=== PATIENT | female | born 1935 | race Caucasian/White ===

== ENCOUNTER 2019-11-19 10:29 | Emergency (ER) | payer MEDICARE ==
[~2019-11-19] VITALS: Ht 160 cm; Wt 68.5 kg
[~2019-11-19 10:29] MED LIST: AMLO5 PO; ASPI325 PO; FURO20 PO; GABA100 PO; HYDR-86 PO; LEVO750 PO; LEVSOD100 PO; LEVSOD125 PO; LISHYD2025 PO; METO50ER PO; POTCHL10ER PO; SACC250C PO; XARELTO15 MG PO
[2019-11-19 10:57] LABS: Source, Urine Clean Catch
[2019-11-19 11:00] LABS: Appearance, Urine Clear (Clear); Bilirubin, Urine Neg (Neg); Blood, Urine 1+ (Neg); Color, Urine Yellow (P-Yellow); Glucose Qualitative, Urine Neg (Neg); Ketones, Urine Neg (Neg); Leukocyte Esterase, Urine 1+ (Neg); Nitrite, Urine Neg (Neg); Protein, Urine 1+ (Neg); Urobilinogen, Urine NORM (Normal)
[2019-11-19 11:05] LABS: BASOPHILS ABSOLUTE AUTO 0.02 K/mm3 (0.00-0.23); BASOPHILS PERCENT AUTO 0 % (0-2); EOSINOPHILS PERCENT AUTO 0 % (0-6); Hematocrit 37.5 % (33.0-51.0); Hemoglobin 12.2 g/dL (11.5-16.0); IMMATURE GRAN ABSOLUTE AUTO 0.24 K/mm3 (0.00-0.10); IMMATURE GRAN PERCENT AUTO 1 % (0-1); LYMPHOCYTES PERCENT AUTO 2 % (21-46); MONOCYTES ABSOLUTE AUTO 11.22 K/mm3 (0.16-1.47); MONOCYTES PERCENT AUTO 44 % (4-13); Mean Corpuscular HGB 28.4 pg (26.0-34.0); Mean Corpuscular HGB Conc 32.5 g/dL (31.5-36.5); Mean Corpuscular Volume 87 fL (80-100); Mean Platelet Volume 10.8 fL (9.1-12.4); NEUTROPHILS ABSOLUTE AUTO 13.56 K/mm3 (1.96-9.15); NEUTROPHILS PERCENT AUTO 53 % (41-73); Platelet Count 442 K/mm3 (150-400); RDW Coefficient Variation 14.7 % (11.7-14.2); RDW Standard Deviation 47.1 fL (35.1-46.3); White Blood Cell Count 25.54 K/mm3 (4.00-11.30)
[2019-11-19 11:16] LABS: Bacteria Mod /hpf; Squamous Epithelial Cells Few /hpf (Few)
[2019-11-19 11:24] LABS: Alanine Aminotransfer (ALT/SGP 18 U/L (12-78); Albumin, Blood 3.5 g/dL (3.4-5.0); Albumin/Globulin Ratio 1.2 (0.8-1.8); Alk Phos 60 U/L (50-136); Anion Gap 8 mmol/L (6-16); Aspartate Aminotrans (AST/SGOT 18 U/L (12-37); Bilirubin, Total 0.8 mg/dL (0.1-1.0); Blood Urea Nitrogen 14 mg/dL (8-24); Bun/Creatinine Ratio 24.7 (12.0-20.0); CO2, Blood 27 mmol/L (21-32); Calcium, Blood 8.4 mg/dL (8.5-10.1); Chloride, Blood 102 mmol/L (98-108); Creatinine, Blood 0.57 mg/dL (0.40-1.00); Globulin, Blood 2.9 g/dL (2.2-4.0); Glomerular Filtration Rate >60 (60-); Glucose, Blood 155 mg/dL (70-99); Potassium, Blood 3.8 mmol/L (3.5-5.5); Sodium, Blood 137 mmol/L (136-145); Total Protein, Blood 6.4 g/dL (6.4-8.2)
[2019-11-19] MEDS ORDERED: DILT180 PO (11:31)
[2019-11-19] MEDS ORDERED: ROSU5 PO (11:32)
[2019-11-19] MEDS ORDERED: LOSARTAN POTAS100 MG PO (11:32)
[2019-11-19] MEDS ORDERED: Hydrochloroth12.5 MG PO (11:33)
[2019-11-19] MEDS ORDERED: DOXA1 PO (11:33)
[2019-11-19] MEDS ORDERED: Hydrocodone-Ap1 EA26 PO (11:33)
[2019-11-19] MEDS ORDERED: Potassium Chlo20 ME1 PO (11:34)
[2019-11-19] MEDS ORDERED: FUROSEMIDE20 MG PO (11:34)
[2019-11-19] MEDS ORDERED: SYNTHROID100 MCG PO (11:34)
[2019-11-19] MEDS ORDERED: Ventolin/Prove6.7 GM INH (11:35)
[2019-11-19] MEDS ORDERED: XARELTO20 M1 PO (11:36)
== END 2019-11-19 18:47 | disposition short-term general hospital (02) ==
LOC: ER 10:29
PROVIDERS: Emergency Medicine
DX: A41.9 Sepsis, unspecified organism (principal); K80.00 Calculus of gallbladder with acute cholecystitis without obstruction; I11.0 Hypertensive heart disease with heart failure; I50.9 Heart failure, unspecified; E03.9 Hypothyroidism, unspecified; Z91.09 Other allergy status, other than to drugs and biological substances; Z88.2 Allergy status to sulfonamides; Z79.899 Other long term (current) drug therapy
CPT/HCPCS: 36415; 71045; 74176; 76705; 80053; 81001; 83605; 83690; 85025; 87040; 87077; 87086; 87186; 96361; 96365; 96375; 96376; 99285-25; J2405; J2543; J3010; J7030

== ENCOUNTER → 2020-07-23 | Outpatient (CLI) | payer MEDICARE ==
[~2020-07-23] MED LIST changes: +DILT180 PO; +DOXA1 PO; +FUROSEMIDE20 MG PO; +Hydrochloroth12.5 MG PO; +Hydrocodone-Ap1 EA26 PO; +LOSARTAN POTAS100 MG PO; +Potassium Chlo20 ME1 PO; +ROSU5 PO; +SYNTHROID100 MCG PO; +Ventolin/Prove6.7 GM INH; +XARELTO20 M1 PO
== END | disposition home or self-care (01) ==
LOC: LAB SHORT 14:58 → PLD 14:58
DX: L81.4 Other melanin hyperpigmentation (principal)
CPT/HCPCS: 88305

== ENCOUNTER 2022-05-05 20:47 | Inpatient (IN) | payer MEDICARE ==
[~2022-05-05] VITALS: Ht 157.5 cm; Wt 58.6 kg
[~2022-05-05 20:47] MED LIST changes: +EUTHYROX125 MCG PO; -SYNTHROID100 MCG PO
[2022-05-05 21:06] LABS: Hematocrit 32.2 % (33.0-51.0); Hemoglobin 10.6 g/dL (11.5-16.0); Mean Corpuscular HGB 28.8 pg (26.0-34.0); Mean Corpuscular HGB Conc 32.9 g/dL (31.5-36.5); Mean Corpuscular Volume 88 fL (80-100); Mean Platelet Volume 10.9 fL (9.1-12.4); Platelet Count 474 K/mm3 (150-400); RDW Coefficient Variation 15.8 % (11.7-14.2); RDW Standard Deviation 49.6 fL (35.1-46.3); Red Blood Cell Count 3.68 M/mm3 (3.80-5.20); White Blood Cell Count 30.21 K/mm3 (4.00-11.30)
[2022-05-05 21:19] LABS: Albumin, Blood 3.1 g/dL (3.4-5.0); Bilirubin, Total 0.8 mg/dL (0.1-1.0); Bun/Creatinine Ratio 28.7 (12.0-20.0); Calcium, Blood 8.2 mg/dL (8.5-10.1); Creatinine, Blood 0.66 mg/dL (0.40-1.00); Potassium, Blood 3.5 mmol/L (3.5-5.5); Total Protein, Blood 6.1 g/dL (6.4-8.2)
[2022-05-05 21:30] LABS: BAND PERCENT MAN 12 % (0-8); BASOPHILS PERCENT MAN 0 % (0-2); EOSINOPHILS PERCENT MAN 0 % (0-6); LYMPHOCYTES PERCENT MAN 1 % (21-46); MONOCYTES ABSOLUTE MAN 6.64 K/mm3 (0.16-1.47); MONOCYTES PERCENT MAN 22 % (4-13); NEUTROPHILS ABSOLUTE MAN 23.26 K/mm3 (1.96-9.15); SEG NEUTROPHILS PERCENT MAN 65 % (41-73); TOTAL CELLS COUNTED 100
[2022-05-05 22:39] LABS: Thyroid Stimulating Hormone 0.8 uIU/mL (0.360-4.800)
[2022-05-06 00:18] LABS: Influenza A, PCR NEGATIVE (NEGATIVE); Influenza B, PCR NEGATIVE (NEGATIVE); Resp Syncytial Virus, PCR NEGATIVE (NEGATIVE)
[2022-05-06 00:58] LABS: SARS-Cov-2 (COVID-19) PCR, MMC POSITIVE (NEGATIVE)
--- NOTE | 2022-05-06 02:46 | NUR ---
ADMIT NOTE PT TO 313 FROM ED AT 0246. PT IS NOT ON O2. PT IS ON TELE, SINUS IN THE 70'S. PT IS COVID + AND ADMITTED FOR SEPSIS. PT STS NO DIFFICULTY BREATHING AND NO PAIN AT THIS TIME. PT VITALS WITHIN NORMAL LIMITS. PT HAS TWO INFLAMED RED SPOTS ON HER R LOWER [place]/ANKLE WHERE SHE WAS BITTEN BY A STRAY CAT A FEW DAYS AGO. REMDEZEVIR STARTED AND NS RUNNING. PT IS ALERT AND ORIENTED X 4 AND IS PLEASANT AND COOPERATIVE. PT USES FWW TO AMBULATE DUE TO ISSUES WITH HER BALANCE.
[2022-05-06] MEDS ORDERED: AMLODIPINE BESYL5 MG PO (03:48)
[2022-05-06] MEDS ORDERED: TELMISARTAN80 MG PO (03:49)
[2022-05-06] MEDS ORDERED: METOPROLOL SUCC25 MG PO (03:49)
[2022-05-06] MEDS ORDERED: GABAPENTIN600 MG PO (03:50)
[2022-05-06] MEDS ORDERED: CEPH500 PO (03:52)
[2022-05-06 04:45] LABS: Hematocrit 29.3 % (33.0-51.0); Hemoglobin 9.7 g/dL (11.5-16.0); Mean Corpuscular HGB Conc 33.1 g/dL (31.5-36.5); Mean Corpuscular Volume 88 fL (80-100); Mean Platelet Volume 10.9 fL (9.1-12.4); Platelet Count 429 K/mm3 (150-400); RDW Coefficient Variation 15.6 % (11.7-14.2); RDW Standard Deviation 48.9 fL (35.1-46.3); Red Blood Cell Count 3.34 M/mm3 (3.80-5.20); White Blood Cell Count 28.99 K/mm3 (4.00-11.30)
[2022-05-06 05:03] LABS: Bun/Creatinine Ratio 26.4 (12.0-20.0); Calcium, Blood 8.2 mg/dL (8.5-10.1); Creatinine, Blood 0.64 mg/dL (0.40-1.00); Potassium, Blood 3.3 mmol/L (3.5-5.5)
[2022-05-06 05:28] LABS: BASOPHILS PERCENT MAN 0 % (0-2); EOSINOPHILS PERCENT MAN 0 % (0-6); LYMPHOCYTES ABSOLUTE MAN 0.57 K/mm3 (0.84-5.20); LYMPHOCYTES PERCENT MAN 2 % (21-46); MONOCYTES ABSOLUTE MAN 6.95 K/mm3 (0.16-1.47); MONOCYTES PERCENT MAN 24 % (4-13); NEUTROPHILS ABSOLUTE MAN 21.45 K/mm3 (1.96-9.15); SEG NEUTROPHILS PERCENT MAN 74 % (41-73); TOTAL CELLS COUNTED 100
[2022-05-06] MEDS ORDERED: ELIQUIS5 M2 PO (08:39)
--- NOTE | 2022-05-06 18:11 | NUR ---
PT REPORTED THIS AM SHE DOES NOT TAKE XARELTO OR CRESTOR. SHE REPORTS SHE TAKES ELIQUIS 5 MG PO BID, METORPOLOL XL 12.[address] ALONSO NOTIFIED OF MEDICATION CHANGES AND RECONCILIATION COMPLETED. DR. ALONSO GAVE TO FOR ABOVE CHANGES TO BE COMPLETED.
--- NOTE | 2022-05-06 19:34 | NUR ---
SHIFT SUMMARY: PT A/O X 4 STANDBY ASSIST, VERY PLEASANT AND COOPERATIVE WITH CARES. PT ON TELE DID GET TACHICARDIC WHEN UP TO BSC UP TO 130'S BUT CAME DOWN ONCE RESTING IN BED. PT DID GET SOB WITH EXERTION WHICH DID RESOLVE AFTER A FEW MINUTES AT REST. PT HAD TWO FORMED BM'S TODAY. SHE IS EATING AND DRINKING WELL. PT WOUND TO RLE MONICA, NO DRAINAGE AT THIS TIME. LEG IS SWOLLEN. PT C/O PAIN TO LEG THIS EVENING ALONG WITH A LARRY. MEDICATED WITH NORCO PER JAN.
--- NOTE | 2022-05-07 05:20 | NUR ---
PT IS A/O, RLE SWOLLEN WITH CAT BITE, COVID POSITIVE, ON RA. PT IS STANDBY ASSIST TO BSC THIS SHIFT, USES FWW AT HOME AT BASELINE. 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 MEDICATED FOR LARRY AND BACK PAIN THIS SHIFT.
[2022-05-07 08:26] LABS: Hematocrit 32.3 % (33.0-51.0); Hemoglobin 10.3 g/dL (11.5-16.0); Mean Corpuscular HGB 28.6 pg (26.0-34.0); Mean Corpuscular HGB Conc 31.9 g/dL (31.5-36.5); Mean Corpuscular Volume 90 fL (80-100); Mean Platelet Volume 11.4 fL (9.1-12.4); Platelet Count 417 K/mm3 (150-400); RDW Coefficient Variation 15.8 % (11.7-14.2); RDW Standard Deviation 51.7 fL (35.1-46.3); White Blood Cell Count 19.97 K/mm3 (4.00-11.30)
--- NOTE | 2022-05-07 18:39 | NUR ---
AOX4, CAN MAKE NEEDS KNOWN. PT SBA ASST USES FWW AT HOME. COOPERATIVE WITH MEDICATION AND CARE. SWOLLEN RLE, TREATING WITH IV ABX. COVID POSITIVE (ROOM AIR); TREATING WITH ANTI-VIRAL. PT STATED PAIN LEVEL OF 4/10 TODAY, PRN NORCO GIVEN. TORADOL WAS ADDED TO THE SCHEDULED MEDICATIONS TODAY, PATIENT STATED GOOD RELIEF. NO ACUTE CHANGES. CALL-LIGHT WITHIN REACH. BED IN LOWEST POSITION.
[2022-05-07 20:21] LABS: Vancomycin, Trough 7.3 ug/mL (5.0-10.0)
[2022-05-08 05:08] LABS: Hematocrit 31.7 % (33.0-51.0); Hemoglobin 10.2 g/dL (11.5-16.0); Mean Corpuscular HGB 28.6 pg (26.0-34.0); Mean Corpuscular HGB Conc 32.2 g/dL (31.5-36.5); Mean Corpuscular Volume 89 fL (80-100); Mean Platelet Volume 11.2 fL (9.1-12.4); Platelet Count 515 K/mm3 (150-400); RDW Coefficient Variation 15.7 % (11.7-14.2); RDW Standard Deviation 50.4 fL (35.1-46.3); Red Blood Cell Count 3.57 M/mm3 (3.80-5.20)
[2022-05-08 05:09] LABS: White Blood Cell Count 12.01 K/mm3 (4.00-11.30)
[2022-05-08 05:39] LABS: Albumin, Blood 2.7 g/dL (3.4-5.0); Albumin/Globulin Ratio 0.9 (0.8-1.8); Bilirubin, Total 0.6 mg/dL (0.1-1.0); Bun/Creatinine Ratio 43.6 (12.0-20.0); Calcium, Blood 8.8 mg/dL (8.5-10.1); Creatinine, Blood 0.53 mg/dL (0.40-1.00); Total Protein, Blood 5.7 g/dL (6.4-8.2)
--- NOTE | 2022-05-08 05:48 | NUR ---
PT IS A/O, VERY PLEASANT, STANDBY ASSIST TO BSC. RLE CAT BITE RED AND SWOLLEN, MEDICATED FOR PAIN THIS SHIFT WITH NORCO AND TORRADOL,
[2022-05-08] MEDS ORDERED: VISBIOME 112.51 EACH PO (15:16)
[2022-05-08] MEDS ORDERED: Cleocin HCl150 MG PO (15:16)
[2022-05-08] MEDS ORDERED: AMOCLA875 PO (15:16)
== END 2022-05-08 15:53 | disposition home or self-care (01) | DRG 871 ==
LOC: ER 20:47 → ERHOLD 23:31 → MEDS 05-06 02:45
PROVIDERS: Family Medicine; Internal Medicine; Student in an Organized Health Care Education/Training Program; ADMIT Internal Medicine
PROC: 3E03329 Introduction of Other Anti-infective into Peripheral Vein, Percutaneous Approach (ICD-10-PCS; 2022-05-05)
PROC: 3E0DX3Z Introduction of Anti-inflammatory into Mouth and Pharynx, External Approach (ICD-10-PCS; principal; 2022-05-06)
PROC: XW033E5 Introduction of Remdesivir Anti-infective into Peripheral Vein, Percutaneous Approach, New Technology Group 5 (ICD-10-PCS; 2022-05-07)
DX: A41.9 Sepsis, unspecified organism (principal); U07.1 COVID-19; J12.82 Pneumonia due to coronavirus disease 2019; J15.9 Unspecified bacterial pneumonia; L03.115 Cellulitis of right lower limb; I50.32 Chronic diastolic (congestive) heart failure; Z66 Do not resuscitate; I48.91 Unspecified atrial fibrillation; E03.9 Hypothyroidism, unspecified; R19.7 Diarrhea, unspecified; S81.851A Open bite, right lower leg, initial encounter; I25.10 Atherosclerotic heart disease of native coronary artery without angina pectoris; I11.0 Hypertensive heart disease with heart failure; Z88.2 Allergy status to sulfonamides; Z91.048 Other nonmedicinal substance allergy status; Z79.899 Other long term (current) drug therapy; Z79.01 Long term (current) use of anticoagulants; Z90.49 Acquired absence of other specified parts of digestive tract; Z90.710 Acquired absence of both cervix and uterus; Z96.653 Presence of artificial knee joint, bilateral; W55.01XA Bitten by cat, initial encounter
CPT/HCPCS: 0241U; 36415; 71045; 73590; 80048; 80053; 80202; 83605; 84145; 84443; 84484; 85025; 85027; 87040; 92610; 93005; 93010; 96365; 96375; 99285-25; A9270; J0248; J0295; J1885; J3370; J7030; J7050; J7060; J7120